=== PATIENT | female | born 2000 | race Hispanic/Latino ===

== ENCOUNTER 2025-02-07 14:11 | Observation (INO) | payer BC ==
[~2025-02-07] VITALS: Ht 154.9 cm; Wt 57.5 kg
--- NOTE | 2025-02-07 14:29 | ERN ---
ED Note History of Present Illness Stated Complaint: REFERRAL FROM [facility] Chief Complaint: Nausea,Vomiting,Diarrhea Time Seen by MD: 14:12 Dictation: PATIENT IS A 24-YEAR-OLD FEMALE COMING IN TODAY FROM [facility] AFTER HAVING A CT WITH AND WITHOUT CONTRAST THIS MORNING. SHE STATES THE CT DEMONSTRATES SHE HAS EARLY APPENDICITIS. SHE IS HAVING MILD LOWER ABDOMINAL PAIN. NO REBOUND TENDERNESS STATES SHE HAS BEEN HAVING INTERMITTENT ABDOMINAL PAIN TO HER LOWER QUADRANT ONSET LAST WEEK. NO FEVER NO CHILLS. Allergies: Coded Allergies: No Known Drug Allergies (Unverified Allergy, Unknown, 02/07/25) Past Medical History Past Medical History: GERD Additional Past Medical Hx: GASTRITIS Surgical History: None History: Not Applicable LMP: Jan 04, 2025 RN Note Reviewed/Agreed w/PFSH: Yes Review of System Dictation CONSTITUTIONAL: NEGATIVE EXCEPT FOR HPI HEAD/FACE: NEGATIVE EXCEPT FOR HPI EENT: NEGATIVE EXCEPT FOR HPI RESPIRATORY: NEGATIVE EXCEPT FOR HPI GASTROINTESTINAL/ABDOMINAL: NEGATIVE EXCEPT FOR HPI LOWER ABDOMINAL PAIN GENITOURINARY: NEGATIVE EXCEPT FOR HPI MUSCULOSKELETAL: NEGATIVE EXCEPT FOR HPI INTEGUMENTARY: NEGATIVE EXCEPT FOR HPI NEUROLOGICAL/PSYCH: NEGATIVE EXCEPT FOR HPI HEMATOLOGIC/LYMPHATIC: NEGATIVE EXCEPT FOR HPI ALL SYSTEMS NEGATIVE, EXCEPT NOTED ABOVE. 13 POINT REVIEW OF SYSTEMS ASSESSED AND ALL NEGATIVE EXCEPT FOR ABOVE. Initial Vital Sign VS Vital Signs Date Time Temp Pulse Resp B/P (MAP) Pulse Ox O2 Delivery O2 Flow Rate FiO2 02/07/25 14:23 99.0 89 16 129/71 98 Room Air 0 Physical Exam Dictation VITAL SIGNS REVIEWED GENERAL APPEARANCE: ALERT, ORIENTED X 3, NO ACUTE DISTRESS, WELL DEVELOPED, NOURISHED. HEAD AND FACE: NON-TRAUMATIC. EYES: PERRL, PINK CONJUNCTIVAS, EYELID NO TRAUMA, ANTERIOR CHAMBER WITH ARCUS SENILIS. EARS: PINNAS INTACT AND NO SIGNS OF TRAUMA OR ERYTHEMA EAR CANALS CLEAR AND NO DISCHARGE TM NO ERYTHEMA NOSE: NO DISCHARGE, NO BLEEDING. OROPHARYNX: MOUTH NORMAL, TONGUE PINK, PHARYNX CLEAR,NO ERYTHEMA, TONSILS NO EXUDATES, NO ABSCESSES NOTED, MUCOUS MEMBRANE MOIST NECK: SUPPLE, NON-TENDER, NO THYROMEGALY, NO MASSES, NO JVD, NO BRUITS BREAST:DEFERRED CHEST:NO TENDERNESS, NO CREPITUS, NO PARADOXICAL MOVEMENT, NO RETRACTIONS LUNGS:CLEAR, WELL-VENTILATED, SYMMETRIC, NO RALES, NO WHEEZING, NO RHONCHI, NO STRIDOR, GOOD BREATH SOUNDS BILATERALLY HEART: REGULAR RATE, REGULAR RHYTHM, NO MURMUR, NO GALLOPS VASCULAR: NO PERIPHERAL EDEMA, ABDOMEN: SOFT, POSITIVE BOWEL SOUNDS, NONDISTENDED, NO GUARDING, MILD PERIUMBILICAL AND RIGHT LOWER QUADRANT TENDERNESS, NO REBOUND, NO MASSES NO HEPATOMEGALY, NO SPLENOMEGALY, NO HERNANDEZ'S SIGN, NO HERNIAS. RECTAL: DEFERRED GENITAL: DEFERRED NEUROLOGICAL: NORMAL SPEECH, MOTOR FUNCTION INTACT, SENSORY FUNCTION INTACT MUSCULOSKELETAL: NECK NONTENDER, FULL RANGE OF MOTION, BACK NONTENDER, FULL RANGE OF MOTION, EXTREMITIES: NONTENDER, FULL RANGE OF MOTION SKIN: COLOR PINK, DRY, NO TURGOR, NO RASH, NO LACERATIONS, NO ABRASIONS, NO CONTUSIONS. LYMPHATIC: DEFERRED Results (Laboratory/Radiology) Laboratory/Radiology Laboratory Tests Test 02/07/25 14:50 02/07/25 14:52 Urine Color COLORLESS (YELLOW) Urine Appearance CLEAR (CLEAR) Urine pH 7.0 (5.0-8.0) Urine Specific [place] 1.005 (1.001-1.031) Urine Protein NEGATIVE mg/dL (NEGATIVE) Urine Glucose (UA) NEGATIVE mg/dL (NEGATIVE) Urine Ketones NEGATIVE mg/dL (NEGATIVE) Urine Occult Blood NEGATIVE (NEGATIVE) Urine Nitrate NEGATIVE (NEGATIVE) Urine Bilirubin NEGATIVE mg/dL (NEGATIVE) Urine Urobilinogen 0.2 mg/dL (0.2-1.0) Urine Leukocyte Esterase NEGATIVE Dre/uL Urine HCG, Qualitative NEGATIVE (NEGATIVE) White Blood Count 8.5 K/uL (4.8-10.8) Red Blood Count 4.18 MIL/uL (4.00-5.50) Hemoglobin 11.9 g/dL (12.0-16.0) L Hematocrit 36.4 % (36-48) Mean Corpuscular Volume 87.1 fL (79-99) Mean Corpuscular Hemoglobin 28.5 pg (27.0-33.0) Mean Corpuscular Hemoglobin Concent 32.7 g/dL (32.0-36.0) Red Cell Distribution Width 12.9 % (11.0-15.5) Platelet Count 246 K/uL (130-400) Mean Platelet Volume 9.7 fL (7.5-10.5) Immature Granulocyte % (Auto) 0.2 % (0-1) Neutrophils (%) (Auto) 42.7 % (40.0-77.0) Lymphocytes (%) (Auto) 49.9 % (21.0-51.0) Monocytes (%) (Auto) 6.0 % (3.0-13.0) Eosinophils (%) (Auto) 0.7 % (0.0-8.0) Basophils (%) (Auto) 0.5 % (0.0-5.0) Neutrophils # (Auto) 3.6 K/uL (1.8-7.7) Lymphocytes # (Auto) 4.3 K/uL (1.0-4.8) Monocytes # (Auto) 0.5 K/uL (0.1-1.0) Eosinophils # (Auto) 0.06 K/uL (0.00-0.70) Basophils # (Auto) 0.04 K/uL (0.00-0.20) Absolute Immature Granulocyte (auto 0.02 K/uL (0-1) Segmented Neutrophils % 47 % (40-70) Band Neutrophils % 3 % (0-2) H Lymphocytes % (Manual) 43 % (22-44) Monocytes % (Manual) 5 % (2-9) Basophils % (Manual) 1 % (0-2) Nucleated Red Blood Cells 0.0 % (0.0-0.19) Differential Comment MANUAL DIFFERENTIAL Reactive Lymphocytes 1 % (0-0) H White Cell Morphology Comment CONSISTENT W/DIFF Platelet Morphology Comment ADEQUATE Red Blood Cell Morphology See comments Sodium Level 140 mmol/L (136-145) Potassium Level 3.9 mmol/L (3.5-5.1) Chloride Level 105 mmol/L (101-111) Carbon Dioxide Level 29 mmol/L (21-32) Blood Urea Nitrogen 10 mg/dL (7-18) Creatinine 0.8 mg/dL (0.5-1.0) Glomerular Filtration Rate Calc 105 mL/min (>90) Random Glucose 86 mg/dL (70-105) Total Calcium 8.9 mg/dL (8.5-10.1) Lipase 27 U/L (16-77) Labs Reviewed?: Yes ED Course ED Course Orders Procedure Category Date Status Time Cbc With Differential LAB 02/07/25 Complete ,Urine Test LAB 02/07/25 Complete Urinalysis Profile LAB 02/07/25 Complete 14:29 0.9%Nacl 1000ml (Ns PHA 02/07/25 Complete 1000ml) 14:30 Ketorolac PHA 02/07/25 Complete Tromethamine 30mg/Ml 14:30 Lipase LAB 02/07/25 Complete 14:29 Basic Metabolic Panel LAB 02/07/25 Complete 14:29 Manual Differential LAB 02/07/25 Complete 14:52 Zosyn 3.375gm+Ns 50ml PHA 02/07/25 Logged (Zosyn 3.375gm+Ns 16:00 General Surgery CONPHYSVC 02/07/25 Transmitted Consult 15:48 Current Medications Medications (Trade) Dose Ordered Sig/Amara Route PRN Reason Start Time Stop Time Status Last Admin Dose Admin Ketorolac Tromethamine (toRADol) 30 mg ONCE ONCE IVP 02/07/25 14:30 02/07/25 14:32 DC 02/07/25 15:23 Piperacillin Sod/ Tazobactam Sod (Zosyn 3.375gm+NS 50ml) 3.375 gm ONCE ONCE IVPB 02/07/25 16:00 02/07/25 16:01 UNV Sodium Chloride 1,000 ml @ 0 mls/hr ONCE ONCE IV 02/07/25 14:30 02/07/25 14:31 DC 02/07/25 15:24 Vital Signs Date Time Temp Pulse Resp B/P (MAP) Pulse Ox O2 Delivery O2 Flow Rate FiO2 02/07/25 14:23 99.0 89 16 129/71 98 Room Air 0 1550/SPOKE WITH /GENERAL SURGERY REGARDING APPENDICITIS. SHE AGREED TO ADMIT PATIENT TO THE HOSPITAL STATES SHE WOULD PERFORM SURGERY IN THE A.M. TOMORROW. CONSULT WAS PLACED. SPOKE WITH PATIENT AND HER AT BEDSIDE AND THEY AGREED TO THE ADMISSION. ADDITIONALLY SHE IS AWARE I WE WILL START IV ANTIBIOTICS AND PAIN WE WILL BE MANAGED.1600/ 1600/SPOKE WITH DR. TERAN, REVIEWED CT LABS AND INTERVENTIONS FOR PAIN AND MY DISCUSSION WITH GENERAL SURGEON SHE HE AGREED TO ADMIT Medical Decision Making MDM MDM: DIFFERENTIAL DIAGNOSIS: APPENDICITIS/DIVERTICULITIS/UTI/ELECTROLYTE IMBALANCE/DEHYDRATION RATIONALE: TESTS CONSIDERED AND ORDERED SECONDARY TO SHARED DECISION MAKING INCLUDE: LABS, AND RADIOLOGY, CP FORM YESTERDAY PREVIOUS OUTSIDE RECORDS REVIEWED: OLD ER VISITS. RISK OF COMPLICATION AND/OR MORBIDITY OR MORTALITY OF PATIENT MANAGEMENT: NONE MEDICATIONS-PER MEDICATION RECONCILIATION NEED FOR HOSPITALIZATION: PATIENT DOES MEET CRITERIA FOR HOSPITALIZATION. ACUTE APPENDICITIS NEED FOR EMERGENCY MAJOR/MINOR SURGERY: APPENDECTOMY THERE ARE NO SOCIAL CONCERNS WITH THIS PATIENT. PRESCRIPTION DRUG MANAGEMENT PRESCRIPTIONS WILL INCLUDE SYMPTOMATIC CARE PATIENT'S PRIOR EXTERNAL MEDICAL RECORDS FROM OTHER ER VISITS WERE REVIEWED BY ME INDICATED. PRIOR TESTING AND RESULTS FROM PREVIOUS VISITS WERE REVIEWED. PRIOR TESTS WERE TAKEN INTO ACCOUNT WITH MEDICAL DECISION MAKING AND RESOURCE UTILIZATION, INDEPENDENT HISTORIAN/HISTORIANS WERE USED TO OBTAIN COMPLETE MEDICAL HISTORY. I INDEPENDENTLY INTERPRETED THE TEST THAT WERE PERFORMED, RESULTS WERE REVIEWED BY ME AND CONSIDERED FINDINGS ON RADIOLOGY IF ORDERED. MEDICAL MANAGEMENT AND EXAMINATION INTERPRETATION DISCUSSIONS WERE HAD BY ME WITH OTHER QUALIFIED HEALTHCARE PROFESSIONALS INDICATED FOR THE PATIENT'S CARE. DX & DISP Disposition: Inpatient Decision to Admit Time: 15:50 Departure Impression: Primary Impression: Acute appendicitis Condition: Stable Referrals: SELF,REFERRAL (PCP) Time of Disposition: 15:50 I have reviewed the case, and I agree with, Diagnosis and Plan ALEJANDRO ANDREW NP Feb 07, 2025 14:29
[2025-02-07 15:15] LABS: IMMATURE GRANULOCYTE ABSOLUTE 0.02 K/uL (0-1); NUCLEATED RED BLOOD CELLS 0.0 % (0.0-0.19); PLATELET COUNT (AUTO) 246 K/uL (130-400); RED BLOOD CELL COUNT(AUTO) 4.18 MIL/uL (4.00-5.50); RED CELL DISTRIBUTION WIDTH 12.9 % (11.0-15.5); WHITE BLOOD COUNT (AUTO) 8.5 K/uL (4.8-10.8)
[2025-02-07 15:17] LABS: APPEARANCE,URINE CLEAR (CLEAR); GLUCOSE, URINE (UA) NEGATIVE (NEGATIVE); LEUKOCYTE ESTERASE ,URINE NEGATIVE Leu/uL (NEGATIVE); NITRATE,URINE NEGATIVE (NEGATIVE); OCCULT BLOOD,URINE NEGATIVE (NEGATIVE)
[2025-02-07 15:21] LABS: CREATININE 0.8 mg/dL (0.5-1.0); GLOMERULAR FILTR. RATE CALC 105.0 mL/min (>90); GLUCOSE,RANDOM 86.0 mg/dL (70-105); SODIUM SERUM 140.0 mmol/L (136-145); UREA NITROGEN, BLOOD 10.0 mg/dL (7-18)
[2025-02-07 15:23] LABS: HCG,QUALITATIVE URINE NEGATIVE (NEGATIVE)
[2025-02-07] MEDS: 0.9%NACL 1000ML 1,000 ML IV ONE (15:24)
[2025-02-07 15:25] LABS: ADD UA MICROSCOPIC NO
[2025-02-07 15:51] LABS: BAND NEUTROPHILS % (MANUAL) 3 % (0-2); BASOPHILS % (MANUAL) 1 % (0-2); LYMPHOCYTES % (MANUAL) 43 % (22-44); MAN.DIFF COMMENT-IMPRESSION MANUAL DIFFERENTIAL; MONOCYTES % (MANUAL) 5 % (2-9); PLATELET MORPHOLOGY COMMENT ADEQUATE; REACTIVE LYMPHOCYTES 1 % (0-0); SEGMENTED NEUTROPHILS % 47 % (40-70); WBC MORPHOLOGY CONSISTENT W/DIFF
[2025-02-07 16:00] VITALS: BP 107/62; PULSE 78; RESP 17; TEMP 98.8
[2025-02-07] MEDS: ZOSYN 3.375GM +NS 50ML IVPB ONE (16:00)
--- NOTE | 2025-02-07 16:17 | HP ---
[facility] HISTORY AND PHYSICAL Date of Service: Feb 07, 2025 Time of Service: 16:17 HISTORY OF PRESENT ILLNESS: This is a 24-year-old female with past medical history of gastritis who presented to the hospital secondary to abdominal pain. Patient states she has been having abdominal failed for the past one week. Her pain is primarily located in the epigastric/periumbilical area which radiates to her upper chest. She denies any fever, chills nausea, vomiting. Denied any diarrhea, constipation at home. She was seen by [facility] and had a CT abdomen pelvis done with and without contrast. Her CT scan was concerning for slight thickening of the appendix concerning for possible early appendicitis. She denied any changes in her appetite, falls, syncopal episode. Denied any chest pain with exertion. She is active at home and is able to perform her daily activities. Denied any dysuria, melena, hematochezia, hematemesis. Patient also has a history of EGD and colonoscopy done around six months ago. Her EGD showed gastritis. She is currently taking omeprazole at home. Labs in the ED were notable for white count of 8.5, hemoglobin was 11.9, platelet count was 246 K, sodium is 140, potassium was 3.9, chloride was 105, creatinine is 0.[address] abdomen pelvis done on 02/07/2025 which showed thickening of the appendix concerning for possible early appendicitis. ED provider spoke to General surgery who recommended patient to be admitted to the hospital for further evaluation. REVIEW OF SYSTEMS CONSTITUTIONAL: Denies fevers, chills, or night sweats. No unintentional weight loss reported. NEUROLOGICAL: Denies headache, amaurosis fugax, motor weakness, sensory deficit, vertigo/spinning sensation, gait abnormalities, or tremors. ENT: No hearing loss, otalgia, otorrhea, rhinitis, rhinorrhea, hoarseness, or sore throat. CARDIOVASCULAR: Denies any exertional angina, dyspnea on exertion, orthopnea, paroxysmal nocturnal dyspnea, palpitations, life-threatening arrhythmias, claudication. PULMONARY: Denies any shortness of breath, cough, phlegm/sputum, hemoptysis, pleuritic chest pain. SLEEP: Denies morning headaches, daytime somnolence or napping. Denies difficulty falling asleep, staying asleep, waking from sleep. Denies knowledge of snoring. GASTROINTESTINAL: Positive for abdominal pain. Denied any nausea, vomiting, constipation, diarrhea GENITOURINARY: Denies frequency, urgency, nocturia, hematuria or incontinence (Storage/Irritative symptoms.) Low urinary stream, straining to void, urinary intermittency or hesitancy, splitting of the voiding stream, terminal dribbling. ENDOCRINOLOGIC: Denies polyuria, polydipsia, polyphagia or heat/cold intolerances. HEMATOLOGIC: Denies thrombophilia/previous clots, or coagulopathy/bleeding disorders. ONCOLOGIC: Denies personal history of malignancy. DERMATOLOGIC: Denies rashes or pruritus. PSYCHIATRIC: Denies any suicidal or homicidal ideation. Denies hallucinations. PAST MEDICAL HISTORY: History of gastritis PAST SURGICAL HISTORY: EGD, colonoscopy PAST SOCIAL HISTORY: Denied any smoking, alcohol, drug use FAMILY HISTORY: Denied any pertinent family history Coded Allergies: No Known Drug Allergies (Unverified Allergy, Unknown, 02/07/25) PHYSICAL EXAM GENERAL APPEARANCE: The patient is awake, alert, and oriented, in no acute cardiopulmonary distress. NEUROLOGICAL: Cranial nerves II-XII grossly intact. Motor is 5/5 in bilateral upper and lower extremities proximal to distal. No sensory deficits. HEENT: Face is symmetric. Pupils are equal and reactive. Extraocular movements are intact. NECK: Supple. No JVD. No thyromegaly. No submental, submandibular, pre- /postauricular, occipital or supraclavicular lymphadenopathy. CHEST: Normal chest expansion. No Telemetry. LUNGS: Absence of any rales, rhonchi or any wheezing. CARDIOVASCULAR: Regular. S1 and S2 normal. No appreciable rubs, murmurs or gallops. ABDOMEN: Soft, nontender, and nondistended. There is no rebound, voluntary guarding, or rigidity. : Deferred. No Dennis. EXTREMITIES: Non-edematous and not cyanotic. No clubbing. Good capillary refill. SKIN: No skin breakdown. Vital Sign (Last 24 Hours) 02/07/25 14:23 Temp 99.0 Pulse 89 Resp 16 B/P (MAP) 129/71 Pulse Ox 98 O2 Delivery Room Air O2 Flow Rate 0 LABS: Laboratory: Test 02/07/25 14:52 02/07/25 14:50 Range/Units White Blood Count 8.5 4.8-10.8 K/uL Red Blood Count 4.18 4.00-5.50 MIL/uL Hemoglobin 11.9 L 12.0-16.0 g/dL Hematocrit 36.4 36-48 % Mean Corpuscular Volume 87.1 79-99 fL Mean Corpuscular Hemoglobin 28.5 27.0-33.0 pg Mean Corpuscular Hemoglobin Concent 32.7 32.0-36.0 g/dL Red Cell Distribution Width 12.9 11.0-15.5 % Platelet Count 246 130-400 K/uL Mean Platelet Volume 9.7 7.5-10.5 fL Immature Granulocyte % (Auto) 0.2 0-1 % Neutrophils (%) (Auto) 42.7 40.0-77.0 % Lymphocytes (%) (Auto) 49.9 21.0-51.0 % Monocytes (%) (Auto) 6.0 3.0-13.0 % Eosinophils (%) (Auto) 0.7 0.0-8.0 % Basophils (%) (Auto) 0.5 0.0-5.0 % Neutrophils # (Auto) 3.6 1.8-7.7 K/uL Lymphocytes # (Auto) 4.3 1.0-4.8 K/uL Monocytes # (Auto) 0.5 0.1-1.0 K/uL Eosinophils # (Auto) 0.06 0.00-0.70 K/uL Basophils # (Auto) 0.04 0.00-0.20 K/uL Absolute Immature Granulocyte (auto 0.02 0-1 K/uL Segmented Neutrophils % 47 40-70 % Band Neutrophils % 3 H 0-2 % Lymphocytes % (Manual) 43 22-44 % Monocytes % (Manual) 5 2-9 % Basophils % (Manual) 1 0-2 % Nucleated Red Blood Cells 0.0 0.0-0.19 % Differential Comment MANUAL DIFFERENTIAL Reactive Lymphocytes 1 H 0-0 % White Cell Morphology Comment CONSISTENT W/DIFF Platelet Morphology Comment ADEQUATE Red Blood Cell Morphology See comments Sodium Level 140 136-145 mmol/L Potassium Level 3.9 3.5-5.1 mmol/L Chloride Level 105 101-111 mmol/L Carbon Dioxide Level 29 21-32 mmol/L Blood Urea Nitrogen 10 7-18 mg/dL Creatinine 0.8 0.5-1.0 mg/dL Glomerular Filtration Rate Calc 105 >90 mL/min Random Glucose 86 70-105 mg/dL Total Calcium 8.9 8.5-10.1 mg/dL Lipase 27 16-77 U/L Urine Color COLORLESS YELLOW Urine Appearance CLEAR CLEAR Urine pH 7.0 5.0-8.0 Urine Specific [place] 1.005 1.001-1.031 Urine Protein NEGATIVE NEGATIVE mg/dL Urine Glucose (UA) NEGATIVE NEGATIVE mg/dL Urine Ketones NEGATIVE NEGATIVE mg/dL Urine Occult Blood NEGATIVE NEGATIVE Urine Nitrate NEGATIVE NEGATIVE Urine Bilirubin NEGATIVE NEGATIVE mg/dL Urine Urobilinogen 0.2 0.2-1.0 mg/dL Urine Leukocyte Esterase NEGATIVE NEGATIVE Dre/uL Urine HCG, Qualitative NEGATIVE NEGATIVE DIAGNOSTICS / RADIOLOGY: CT scan was reviewed ASSESSMENT: Suspected acute appendicitis POA History of gastritis PLAN: - patient to be admitted to medical-surgical unit with telemetry -in reference to acute appendicitis. The patient will be kept NPO. Start patient on NS for gentle hydration. Continue with IV Zosyn. Consultation with surgery was recommended. Follow surgical recommendations. -further orders per hospitalization course. Advanced Care Planning Which of the following were discussed: Hospice care: Yes __ No _x_ Therapeutic options: Yes __ No __ Advance directives: Yes __ No __ Other discussions: Pt is full code Discussed with who?: patient (Patient, family or surrogates) Voluntary nature of this service was explained to the patient? Yes _x_ No __ Amount of time spent: 25 minutes JAVIER Valentino MD, MD Feb 07, 2025 16:17
[2025-02-07] MEDS: 0.9%NACL 1000ML 1,000 ML IV SCH (16:30)
[2025-02-07 17:22] LABS: INR 1.03 (0.85-1.15)
[2025-02-07 21:56] VITALS: BP 122/71; PULSE 68; RESP 16; TEMP 98.3
--- NOTE | 2025-02-07 23:18 | NUR ---
PT NOTIFIED TO HAVE SOMEONE BRING HOME MEDICATIONS AT EARLIEST CONVENIENCE FOR MEDICATION RECONCILIATION.
[2025-02-08] VITALS (29 sets, daily range): BP systolic 103–130; BP diastolic 50–77; PULSE 62–90; RESP 14–20; TEMP 97.1–98.9; O2SAT 95–100
[2025-02-08] MEDS ORDERED: 0.9%NACL 50ML IV SCH (02:00)
[2025-02-08] MEDS: ZOSYN 3.375GM +NS 50ML IVPB SCH (02:06)
[2025-02-08] MEDS ORDERED: ONDA-104 PO (04:09)
[2025-02-08] MEDS ORDERED: OMEP20CA12 PO (04:09)
[2025-02-08] MEDS ORDERED: FAMO40TA7 PO (04:33)
[2025-02-08] MEDS ORDERED: PLEC3TAB2 PO (04:33)
[2025-02-08 07:07] LABS: IMMATURE GRANULOCYTE ABSOLUTE 0.02 K/uL (0-1); NUCLEATED RED BLOOD CELLS 0.0 % (0.0-0.19); PLATELET COUNT (AUTO) 206 K/uL (130-400); RED BLOOD CELL COUNT(AUTO) 3.89 MIL/uL (4.00-5.50); RED CELL DISTRIBUTION WIDTH 12.8 % (11.0-15.5); WHITE BLOOD COUNT (AUTO) 6.5 K/uL (4.8-10.8)
[2025-02-08 07:17] LABS: CREATININE 0.8 mg/dL (0.5-1.0); GLOMERULAR FILTR. RATE CALC 105.0 mL/min (>90); GLUCOSE,RANDOM 84.0 mg/dL (70-105); SODIUM SERUM 134.0 mmol/L (136-145); UREA NITROGEN, BLOOD 11.0 mg/dL (7-18)
--- NOTE | 2025-02-08 07:36 | EKG ---
[facility] Test Date: 2025-02-07 Test Time: 17:36:50 Pat Name: TREY TANNER Department: [facility] Room: 407 1 Gender: F Wireless Watcher: [id number] : 2000 Requested By: JAVIER TERAN Order Number: [id number] Reading MD: Bonilla Menard Measurements Intervals Mccleary Rate: 69 P: 59 HI: 154 QRS: 76 QRSD: 95 T: 39 QT: 384 QTc: 412 Interpretive Statements Sinus rhythm ST elev, probable normal early repol pattern No previous ECG available for comparison Electronically Signed On 02-10-2025 23:56:57 CDT by Bonilla Menard Please click the below link to view image of tracing.
--- NOTE | 2025-02-08 10:57 | CONS ---
GENERAL SURGERY CONSULTATION NOTE DATE OF CONSULTATION: Feb 08, 2025 TIME OF CONSULTATION: 10:54 CONSULTING SERVICE: Tea Leblanc MD REQUESTING PHYSICAIN: [ ] REASON FOR CONSULTATION: Acute appendicitis HISTORY OF PRESENT ILLNESS: 24-year-old female previously healthy started with the acute onset of abdominal pain about a week ago it was on and off. With nausea no fevers. Within the last few days it got worse and we decided to come to the primary care who ordered a CT scan. and was found to have acute appendicitis on CT scan. In this finding was sent to the ER to be admitted. PAST MEDICAL HISTORY: GERD PAST SURGICAL HISTORY: None FAMILY HISTORY: [ ] SOCIAL HISTORY: None Current Medications Medications (Trade) Dose Ordered Sig/Amara Route Start Time Stop Time Status Last Admin Dose Admin Piperacillin Sod/ Tazobactam Sod (Zosyn 3.375gm+NS 50ml) 3.375 gm Q8H IVPB 02/08/25 02:00 02/18/25 01:59 02/08/25 09:48 3.375 GM Sodium Chloride 1,000 ml @ 100 mls/hr Q10H IV 02/07/25 16:30 03/09/25 16:29 02/08/25 02:06 100 MLS/HR Sodium Chloride (NS 50ml) 50 ml AD IV 02/08/25 02:00 03/10/25 01:59 Allergies: Coded Allergies: No Known Drug Allergies (Unverified Allergy, Unknown, 02/07/25) REVIEW OF SYSTEMS: DEAN OF FACULTY: [Denies headaches or blurring of vision.] RESP: No shortness of breath CVS: [No palpitaions.] GI: As per HPI WANDY: [No dysuria or hematuria.] Musculoskeletal: [No swelling or joint pain.] BACK: [No pain or swelling.] All other systems are reviewed and essentially negative pertinent positives in HPI. PHYSICAL EXAMINATION: GENERAL: No distress HEAD: Normocephalic EYES: Normal conjunctiva NECK: Trachea midline LUNGS: [Clear breath sounds bilaterally. No wheezes, rales, or rhonchi.] HEART: [Regular rate and rhythm ABD: [Bowel sounds present,soft, right lower quadrant tenderness EXT: No deformities SKIN: [ No rashes or lesions.] NEURO: [ Awake Alert and oriented x3. Vital Signs (last 8hr) Date Time Temp Pulse Resp B/P (MAP) Pulse Ox O2 Delivery O2 Flow Rate FiO2 02/08/25 08:23 95 Room Air* 0 02/08/25 07:41 98.4 77 16 116/63 95 Room Air 02/08/25 04:36 100 Room Air* 0 02/08/25 04:25 98.2 62 20 130/69 98 Room Air 02/08/25 04:11 98.8 69 17 124/56 99 Room Air* 0 02/08/25 03:18 98.2 78 15 118/72 100 Room Air 0.0 LABORATORY: [ ] Hematology Labs: Test 02/08/25 06:49 02/07/25 14:52 Range/Units White Blood Count 6.5 4.8-10.8 K/uL Red Blood Count 3.89 L 4.00-5.50 MIL/uL Hemoglobin 11.2 L 12.0-16.0 g/dL Hematocrit 33.9 L 36-48 % Mean Corpuscular Volume 87.1 79-99 fL Mean Corpuscular Hemoglobin 28.8 27.0-33.0 pg Mean Corpuscular Hemoglobin Concent 33.0 32.0-36.0 g/dL Red Cell Distribution Width 12.8 11.0-15.5 % Platelet Count 206 130-400 K/uL Mean Platelet Volume 9.3 7.5-10.5 fL Immature Granulocyte % (Auto) 0.3 0-1 % Neutrophils (%) (Auto) 41.6 40.0-77.0 % Lymphocytes (%) (Auto) 49.5 21.0-51.0 % Monocytes (%) (Auto) 6.9 3.0-13.0 % Eosinophils (%) (Auto) 1.1 0.0-8.0 % Basophils (%) (Auto) 0.6 0.0-5.0 % Neutrophils # (Auto) 2.7 1.8-7.7 K/uL Lymphocytes # (Auto) 3.2 1.0-4.8 K/uL Monocytes # (Auto) 0.5 0.1-1.0 K/uL Eosinophils # (Auto) 0.07 0.00-0.70 K/uL Basophils # (Auto) 0.04 0.00-0.20 K/uL Absolute Immature Granulocyte (auto 0.02 0-1 K/uL Nucleated Red Blood Cells 0.0 0.0-0.19 % Segmented Neutrophils % 47 40-70 % Band Neutrophils % 3 H 0-2 % Lymphocytes % (Manual) 43 22-44 % Monocytes % (Manual) 5 2-9 % Basophils % (Manual) 1 0-2 % Differential Comment MANUAL DIFFERENTIAL Reactive Lymphocytes 1 H 0-0 % White Cell Morphology Comment CONSISTENT W/DIFF Platelet Morphology Comment ADEQUATE Red Blood Cell Morphology See comments Chemistry Labs: Test 02/08/25 06:49 02/07/25 19:46 02/07/25 14:52 Range/Units Sodium Level 134 L 136-145 mmol/L Potassium Level 3.5 3.5-5.1 mmol/L Chloride Level 102 101-111 mmol/L Carbon Dioxide Level 27 21-32 mmol/L Blood Urea Nitrogen 11 7-18 mg/dL Creatinine 0.8 0.5-1.0 mg/dL Glomerular Filtration Rate Calc 105 >90 mL/min Random Glucose 84 70-105 mg/dL Total Calcium 8.5 8.5-10.1 mg/dL Troponin I High Sensitivity 5 4-50 ng/L Lipase 27 16-77 U/L Coagulation Labs: Test 02/07/25 14:52 Range/Units Prothrombin Time 10.9 9.6-11.6 SEC Prothromb Time International Ratio 1.03 0.85-1.15 Activated Partial Thromboplast Time 27.9 26.3-35.5 SEC DIAGNOSTICS / RADIOLOGY: [Copy/Paste Echos/Imaging Report here] ASSESSMENT: Acute appendicitis PLAN: Schedule for OR we discussed all the risks of laparoscopic appendectomy possible open and she agrees to proceed. KIKI DELEON MD Feb 08, 2025 10:57
[2025-02-08] MEDS: SUGAMMADEX SODIUM 200 MG/2 ML VIAL IV ONE (11:52)
--- NOTE | 2025-02-08 13:08 | OP ---
Operative Note: DATE OF PROCEDURE: 02/08/25 PROCEDURE:Laparoscopic appendectomy. ANESTHESIA: General endotracheal. PREOPERATIVE DIAGNOSIS: Appendicitis. POSTOPERATIVE DIAGNOSIS: Acute appendicitis without perforation. DEVICES LEFT IN PLACE: None. FLUID AND BLOOD PRODUCTS: Per anesthesia report. BLOOD LOSS: Minimal. SPECIMENS REMOVED: Appendix. COMPLICATIONS: None immediate. SURGEON: Kiki Zavala MD. DESCRIPTION OF PROCEDURE: The patient was brought to the operating room and placed on the operating table in supine position where general endotracheal anesthesia was achieved. We then proceeded to prep and drape the abdomen in sterile fashion, created a longitudinal incision at the umbilicus, and dissected down through the skin, subcutaneous tissue, and fascia to expose the fascia and incise the fascia at the midline using a #15 blade and entered the abdominal cavity. We introduced a trocar, obtained pneumoperitoneum, and then under direct visualization, we proceeded to place two 5-mm trocars, one in the suprapubic position and the other in the left lower quadrant. We then proceeded to evaluate the pelvis. We evaluated the appendix and it has changes of acute appendicitis. We therefore proceeded to release the appendix from all its adhesions using blunt and sharp dissection with a LigaSure and then proceeded to create a window at the base of the appendix with a [place] dissector and divided the mesoappendix with the LigaSure device. Once the base of the appendix was free, we then proceeded to divide the appendix with the [place] vascular load stapler. Placed the appendix into the Endo Catch bag. We inspected the pelvis again and we did not find any signs of an abscess or any other signs of infection. Then, under direct visualization, we proceeded to remove our trocars and there was no bleeding from the abdominal wall. We removed the appendix from the abdomen using the EndoCatch bag and relieved the pneumoperitoneum. We closed the fascia at the umbilicus using a 0-Vicryl stitch in the [id number] fashion and then the skin was closed using a 4-0 Monocryl in running subcuticular fashion and Dermabond. The patient tolerated the procedure well. I was present as well during the entire procedure. All counts were correct x 2 at the end of the procedure. KIKI ZAVALA MD Feb 08, 2025 13:08
--- NOTE | 2025-02-08 14:00 | PN ---
[facility] PROGRESS NOTE Date of Service: Feb 08, 2025 Time of Service: 13:58 SUBJECTIVE: 24-year-old female admitted with chief complaint of abdominal pain, findings suggestive of acute appendicitis on CT abdomen and pelvis. Surgical consultation requested for laparoscopic appendectomy. Patient admitted to the medical floor, hemodynamically stable, afebrile, s aturating normal on room air, hemoglobin 8.2, hematocrit 33.9, potassium 3.5, UA unremarkable, test negative. CT abdomen pelvis reported as follows: IMPRESSION: 1. Slight thickening of the appendix, possible early appendicitis, correlate clinically. No perforation or abscess. New compared to prior CT Abdomen and Pelvis 07/04/2011. REVIEW OF SYSTEMS CONSTITUTIONAL: Denies fevers, chills, or night sweats. No unintentional weight loss reported. NEUROLOGICAL: Denies headache, amaurosis fugax, motor weakness, sensory deficit, vertigo/spinning sensation, gait abnormalities, or tremors. ENT: No hearing loss, otalgia, otorrhea, rhinitis, rhinorrhea, hoarseness, or sore throat. CARDIOVASCULAR: Denies any exertional angina, dyspnea on exertion, orthopnea, paroxysmal nocturnal dyspnea, palpitations, life-threatening arrhythmias, claudication. PULMONARY: Denies any shortness of breath, cough, phlegm/sputum, hemoptysis, pleuritic chest pain. SLEEP: Denies morning headaches, daytime somnolence or napping. Denies difficulty falling asleep, staying asleep, waking from sleep. Denies knowledge of snoring. GASTROINTESTINAL: Positive for abdominal pain. Denied any nausea, vomiting, constipation, diarrhea GENITOURINARY: Denies frequency, urgency, nocturia, hematuria or incontinence (Storage/Irritative symptoms.) Low urinary stream, straining to void, urinary intermittency or hesitancy, splitting of the voiding stream, terminal dribbling. ENDOCRINOLOGIC: Denies polyuria, polydipsia, polyphagia or heat/cold intolerances. HEMATOLOGIC: Denies thrombophilia/previous clots, or coagulopathy/bleeding disorders. ONCOLOGIC: Denies personal history of malignancy. DERMATOLOGIC: Denies rashes or pruritus. PSYCHIATRIC: Denies any suicidal or homicidal ideation. Denies hallucinations. PHYSICAL EXAM GENERAL APPEARANCE: The patient is awake, alert, and oriented, in no acute cardiopulmonary distress. NEUROLOGICAL: Cranial nerves II-XII grossly intact. Motor is 5/5 in bilateral upper and lower extremities proximal to distal. No sensory deficits. HEENT: Face is symmetric. Pupils are equal and reactive. Extraocular movements are intact. NECK: Supple. No JVD. No thyromegaly. No submental, submandibular, pre- /postauricular, occipital or supraclavicular lymphadenopathy. CHEST: Normal chest expansion. No Telemetry. LUNGS: Absence of any rales, rhonchi or any wheezing. CARDIOVASCULAR: Regular. S1 and S2 normal. No appreciable rubs, murmurs or gallops. ABDOMEN: Soft, nontender, and nondistended. There is no rebound, voluntary guarding, or rigidity. : Deferred. No Dennis. EXTREMITIES: Non-edematous and not cyanotic. No clubbing. Good capillary refill. SKIN: No skin breakdown. Vital Signs (last 8hr) Date Time Temp Pulse Resp B/P (MAP) Pulse Ox O2 Delivery O2 Flow Rate FiO2 02/08/25 13:40 79 16 112/52 98 Room Air 02/08/25 13:25 76 16 110/50 96 Room Air 02/08/25 13:10 98.2 87 16 103/56 99 Room Air 02/08/25 13:00 71 16 107/52 100 Nasal Cannula 2.0 02/08/25 12:45 70 15 106/58 100 Nasal Cannula 2.0 02/08/25 12:40 82 16 107/55 Nasal Cannula 2.0 02/08/25 12:35 87 20 109/56 98 Nasal Cannula 2.0 02/08/25 12:30 90 19 127/71 100 Nasal Cannula 2.0 02/08/25 12:25 89 20 129/68 97 Nasal Cannula 2.0 02/08/25 12:20 85 17 127/69 97 Nasal Cannula 2.0 02/08/25 12:15 89 19 118/66 98 Nasal Cannula 2.0 02/08/25 12:10 86 17 124/65 97 Nasal Cannula 2.0 02/08/25 12:05 87 19 123/61 99 Nasal Cannula 2.0 02/08/25 12:00 84 20 121/62 98 Nasal Cannula 2.0 02/08/25 11:55 83 14 125/68 100 Nasal Cannula 2.0 02/08/25 11:50 82 17 118/61 100 Nasal Cannula 2.0 02/08/25 11:45 97.2 84 20 125/65 Nonrebreathing Mask 10.0 02/08/25 08:23 95 Room Air* 0 21 02/08/25 07:41 98.4 77 16 116/63 95 Room Air LABS: Laboratory: Test 02/08/25 06:49 02/07/25 19:46 02/07/25 14:52 02/07/25 14:50 Range/Units White Blood Count 6.5 4.8-10.8 K/uL Red Blood Count 3.89 L 4.00-5.50 MIL/uL Hemoglobin 11.2 L 12.0-16.0 g/dL Hematocrit 33.9 L 36-48 % Mean Corpuscular Volume 87.1 79-99 fL Mean Corpuscular Hemoglobin 28.8 27.0-33.0 pg Mean Corpuscular Hemoglobin Concent 33.0 32.0-36.0 g/dL Red Cell Distribution Width 12.8 11.0-15.5 % Platelet Count 206 130-400 K/uL Mean Platelet Volume 9.3 7.5-10.5 fL Immature Granulocyte % (Auto) 0.3 0-1 % Neutrophils (%) (Auto) 41.6 40.0-77.0 % Lymphocytes (%) (Auto) 49.5 21.0-51.0 % Monocytes (%) (Auto) 6.9 3.0-13.0 % Eosinophils (%) (Auto) 1.1 0.0-8.0 % Basophils (%) (Auto) 0.6 0.0-5.0 % Neutrophils # (Auto) 2.7 1.8-7.7 K/uL Lymphocytes # (Auto) 3.2 1.0-4.8 K/uL Monocytes # (Auto) 0.5 0.1-1.0 K/uL Eosinophils # (Auto) 0.07 0.00-0.70 K/uL Basophils # (Auto) 0.04 0.00-0.20 K/uL Absolute Immature Granulocyte (auto 0.02 0-1 K/uL Nucleated Red Blood Cells 0.0 0.0-0.19 % Sodium Level 134 L 136-145 mmol/L Potassium Level 3.5 3.5-5.1 mmol/L Chloride Level 102 101-111 mmol/L Carbon Dioxide Level 27 21-32 mmol/L Blood Urea Nitrogen 11 7-18 mg/dL Creatinine 0.8 0.5-1.0 mg/dL Glomerular Filtration Rate Calc 105 >90 mL/min Random Glucose 84 70-105 mg/dL Total Calcium 8.5 8.5-10.1 mg/dL Troponin I High Sensitivity 5 4-50 ng/L Segmented Neutrophils % 47 40-70 % Band Neutrophils % 3 H 0-2 % Lymphocytes % (Manual) 43 22-44 % Monocytes % (Manual) 5 2-9 % Basophils % (Manual) 1 0-2 % Differential Comment MANUAL DIFFERENTIAL Reactive Lymphocytes 1 H 0-0 % White Cell Morphology Comment CONSISTENT W/DIFF Platelet Morphology Comment ADEQUATE Red Blood Cell Morphology See comments Prothrombin Time 10.9 9.6-11.6 SEC Prothromb Time International Ratio 1.03 0.85-1.15 Activated Partial Thromboplast Time 27.9 26.3-35.5 SEC Lipase 27 16-77 U/L Urine Color COLORLESS YELLOW Urine Appearance CLEAR CLEAR Urine pH 7.0 5.0-8.0 Urine Specific [place] 1.005 1.001-1.031 Urine Protein NEGATIVE NEGATIVE mg/dL Urine Glucose (UA) NEGATIVE NEGATIVE mg/dL Urine Ketones NEGATIVE NEGATIVE mg/dL Urine Occult Blood NEGATIVE NEGATIVE Urine Nitrate NEGATIVE NEGATIVE Urine Bilirubin NEGATIVE NEGATIVE mg/dL Urine Urobilinogen 0.2 0.2-1.0 mg/dL Urine Leukocyte Esterase NEGATIVE NEGATIVE Dre/uL Urine HCG, Qualitative NEGATIVE NEGATIVE Current Medications Medications (Trade) Dose Ordered Sig/Amara Route PRN Reason Start Time Stop Time Status Last Admin Dose Admin Ketorolac Tromethamine (toRADol) 15 mg Q6H PRN IV MODERATE PAIN (4-6) 02/07/25 16:30 02/12/25 16:29 02/08/25 08:48 15 MG Morphine Sulfate (morPHINE 2MG SYG) 2 mg Q6H PRN IVP SEVERE PAIN (7-10) 02/07/25 16:30 02/14/25 16:29 Ondansetron HCl (zoFRAN 4MG INJ) 4 mg Q6H PRN IVP NAUSEA/VOMITING 02/08/25 04:30 03/10/25 04:29 02/08/25 13:39 4 MG Piperacillin Sod/ Tazobactam Sod (Zosyn 3.375gm+NS 50ml) 3.375 gm Q8H IVPB 02/08/25 02:00 02/18/25 01:59 02/08/25 09:48 3.375 GM Sodium Chloride 1,000 ml @ 100 mls/hr Q10H IV 02/07/25 16:30 03/09/25 16:29 02/08/25 02:06 100 MLS/HR Sodium Chloride (NS 50ml) 50 ml AD IV 02/08/25 02:00 03/10/25 01:59 DIAGNOSTICS / RADIOLOGY: [ ] ASSESSMENT: Suspected acute appendicitis POA History of gastritis PLAN: - patient to be admitted to medical-surgical unit with telemetry -in reference to acute appendicitis. The patient will be kept NPO. Continue on NS for gentle hydration. Continue with IV Zosyn. Consultation with surgery was recommended. Appendectomy today. -further orders per hospitalization course. JAZMINE VAUGHN MD Feb 08, 2025 14:00
[2025-02-09 00:26] VITALS: BP 99/56; PULSE 83; RESP 19; TEMP 98.5
[2025-02-09 04:22] VITALS: BP 119/55; PULSE 71; RESP 18; TEMP 98.4
[2025-02-09 04:40] LABS: NUCLEATED RED BLOOD CELLS 0.0 % (0.0-0.19); PLATELET COUNT (AUTO) 195.0 K/uL (130-400); RED BLOOD CELL COUNT(AUTO) 3.6 MIL/uL (4.00-5.50); RED CELL DISTRIBUTION WIDTH 12.7 % (11.0-15.5); WHITE BLOOD COUNT (AUTO) 7.4 K/uL (4.8-10.8)
[2025-02-09 05:03] LABS: ASPARTATE AMINOTRANSFERASE 88.0 U/L (10-37); CREATININE 0.8 mg/dL (0.5-1.0); GLOMERULAR FILTR. RATE CALC 105.0 mL/min (>90); GLUCOSE,RANDOM 79.0 mg/dL (70-105); SODIUM SERUM 139.0 mmol/L (136-145); TOTAL PROTEIN, SERUM 6.0 g/dL (6.0-8.3); UREA NITROGEN, BLOOD 9.0 mg/dL (7-18)
[2025-02-09 07:45] VITALS: BP 122/56; PULSE 84; RESP 16; TEMP 99.1
[2025-02-09 08:00] VITALS: O2SAT 98
[2025-02-09] MEDS ORDERED: FAMO40TA7 PO (08:04)
[2025-02-09 11:19] VITALS: BP 108/62; PULSE 73; RESP 16; TEMP 98.7
--- NOTE | 2025-02-09 11:26 | NUR ---
DCP: INITIAL ASSESSMENT Patient lives with spouse, Giovanny Lundberg. She has no home services. Patient has BPM at home. No other DME reported. Patient is able to complete ADLs independently and drives. 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 PCP is Dr. Christy Meek. Pharmacy is [facility] in [place]. Patient voiced no safety concerns regarding returning home and states she has no difficulty with housing or buying food. DCP is home. Addendum: 02/09/25 at 1128 by GLADYS CAMPOVERDE Amended: Links added.
--- NOTE | 2025-02-09 12:13 | DS ---
Discharge Summary Hospital Course Summary: DATE OF ADMISSION:[02/07/2025] DATE OF DISCHARGE:[02/09/2025] DISPOSITION:[Home] CONDITION:[Medically stable] CONSULTANTS:[Surgeon] FOLLOW UP APPOINTMENTS:[PCP 2 to 3 days. Surgeon within two weeks] PROCEDURES:[Lap appendectomy 02/08/2026 Dr. Zavala] IMAGING: report attached to summary MICROBIOLOGY: report attached to summary ACTIVITY:[Independent] HOME MEDICATIONS: see med [facility] NEW MEDICATIONS:[Script for tramadol 25 mg q.8 hours was given to the patient. EMERGENCY INSTRUCTIONS: The patient was instructed to present to the nearest Emergency departmentr or call 911 once their symptoms will return or worsen Religion Instructor(s): Patient is 24 years old female who came to emergency department with a complaint of abdominal pain for the past week. Patient had CT abdomen/pelvis performed and she will early acute appendicitis. Surgeon was consulted and yesterday 02/08/2026 performed appendectomy. Today patient was able to tolerate GI soft diet as well is passing gases. Patient was cleared by surgeon to be discharged home. Nurse practitioner prescribed tramadol 25 mg p.o. Q 8 hours as needed for the pain severe. Patient was also advised to follow up with PCP in 2 to 3 days. Procedure(s): REVIEW OF SYSTEMS CONSTITUTIONAL: Denies fevers, chills, or night sweats. No unintentional weight loss reported. NEUROLOGICAL: Denies headache, amaurosis fugax, motor weakness, sensory deficit, vertigo/spinning sensation, gait abnormalities, or tremors. ENT: No hearing loss, otalgia, otorrhea, rhinitis, rhinorrhea, hoarseness, or sore throat. CARDIOVASCULAR: Denies any exertional angina, dyspnea on exertion, orthopnea, paroxysmal nocturnal dyspnea, palpitations, life-threatening arrhythmias, claudication. PULMONARY: Denies any shortness of breath, cough, phlegm/sputum, hemoptysis, pleuritic chest pain. SLEEP: Denies morning headaches, daytime somnolence or napping. Denies difficulty falling asleep, staying asleep, waking from sleep. Denies knowledge of snoring. GASTROINTESTINAL: Positive for abdominal pain s/p lap appendectomy. Denied any nausea, vomiting, constipation, diarrhea GENITOURINARY: Denies frequency, urgency, nocturia, hematuria or incontinence (Storage/Irritative symptoms.) Low urinary stream, straining to void, urinary intermittency or hesitancy, splitting of the voiding stream, terminal dribbling. ENDOCRINOLOGIC: Denies polyuria, polydipsia, polyphagia or heat/cold intolerances. HEMATOLOGIC: Denies thrombophilia/previous clots, or coagulopathy/bleeding disorders. ONCOLOGIC: Denies personal history of malignancy. DERMATOLOGIC: Denies rashes or pruritus. PSYCHIATRIC: Denies any suicidal or homicidal ideation. Denies hallucinations. PHYSICAL EXAM GENERAL APPEARANCE: The patient is awake, alert, and oriented, in no acute cardiopulmonary distress. NEUROLOGICAL: Cranial nerves II-XII grossly intact. Motor is 5/5 in bilateral upper and lower extremities proximal to distal. No sensory deficits. HEENT: Face is symmetric. Pupils are equal and reactive. Extraocular movements are intact. NECK: Supple. No JVD. No thyromegaly. No submental, submandibular, pre- /postauricular, occipital or supraclavicular lymphadenopathy. CHEST: Normal chest expansion. No Telemetry. LUNGS: Absence of any rales, rhonchi or any wheezing. CARDIOVASCULAR: Regular. S1 and S2 normal. No appreciable rubs, murmurs or g allops. ABDOMEN: Soft, nontender, and nondistended. There is no rebound, voluntary gua rding, or rigidity. : Deferred. No Dennis. EXTREMITIES: Non-edematous and not cyanotic. No clubbing. Good capillary refill. SKIN: No skin breakdown. Assessment/Plan: ASSESSMENT: Suspected acute appendicitis POA S/p lap appendectomy 02/12/2025 with History of gastritis Home Medications: Reported Medications Famotidine (Famotidine) 40 Mg Tablet, 40 MG PO HS, TAB 02/09/25 Plecanatide (Trulance) 3 Mg Tablet, 3 MG PO DAILY, TAB 02/08/25 Omeprazole (Omeprazole) 20 Mg Capsule.dr, 1 CAP PO DAILY 02/08/25 Ondansetron HCl (Ondansetron HCl) 4 Mg Tablet, 1 TAB PO Q8H 02/08/25 Discontinued Reported Medications Famotidine (Famotidine) 40 Mg Tablet, 1 TAB PO DAILY for 30 Days, #30 TAB 0 Refills 02/08/25 Time spent arranging discharge: 31-60 minutes ATTESTATION BY PHYSICIAN I have seen and examined the patient. I reviewed the documentation, medical decision making, and treatment plan as noted by the mid-level provider above. I agree with the findings and plan of care. LOREN Perdomo MD [facility] Feb 09, 2025 12:13
--- NOTE | 2025-02-09 13:47 | PN ---
Progress Note: SUBJECTIVE: The patient is postop day 1 from lap appy. Overnight has had no acute events. No nausea, no vomiting. tolerating diet, passing gas, no bowel movement. OBJECTIVE: VITAL SIGNS: Vital signs reviewed and stable. CARDIOVASCULAR: Regular rhythm LUNGS: Clear to auscultation. ABDOMEN: Soft, mildly distended, expectedly tender. Incisions are dry, clean, intact, and still covered. EXTREMITIES: No edema LABORATORY DATA: Lab work has been reviewed. ASSESSMENT AND PLAN: ok to discharge home stool softners as needed for soft BM at home FU in 2w in office. no lifting for 4w. KIKI DELEON MD Feb 09, 2025 13:46
--- NOTE | 2025-02-09 14:18 | NUR ---
PATIENT DISCHARGED. IV REMOVED INTACT. EDUCATION GIVEN ON WOUND CARE AND NO HEAVY LIFTING. EXPLAINED FOLLOW UP APPOINTMENTS. ALL BELONGINGS GATHERED AND TAKEN DOWN BY BOYFRIEND. ALL QUESTIONS AND CONCERNS ANSWERED. TRANSPORTED DOWN TO PERSONAL VEHICLE ALERT AND ORIENTED X 4 VIA WHEELCHAIR.
== END 2025-02-09 14:30 | disposition home or self-care (01) ==
LOC: EDH 14:11 → EDHIP 16:13 → INTOOBSV 16:13 → 4BH 02-08 04:08
PROVIDERS: ADMIT Internal Medicine; ATTEND Internal Medicine
DX: K35.80 Unspecified acute appendicitis (principal); K21.9 Gastro-esophageal reflux disease without esophagitis; K29.70 Gastritis, unspecified, without bleeding; Z79.899 Other long term (current) drug therapy
CPT/HCPCS: 96365; 96366 ×4; 96375 ×2; 99284; 84484; 80048 ×2; 83690; 85025 ×2; 85610; 85730; 81003; 81025; 36415 ×3; 74178; 93005; 44970; 96376 ×2; 88304; 83735; 80053; 85027; J1885 ×6; J2543 ×6; Q9967; G0378 ×22; A4663; J7030; J7120; J1171 ×2; J2270; J2405 ×2; J3480; J0665; C1769 ×3; A4649 ×4; A4930; A4223; A4213; A4222; A4216; A4600; 96374; 99285

== ENCOUNTER → 2025-02-07 | Outpatient (CLI) | payer BC ==
[~2025-02-07] MED LIST: FAMO40TA7 PO; IOHEXOL-350 75 ML VIAL IV ONE; OMEP20CA12 PO; ONDA-104 PO; PLEC3TAB2 PO
--- NOTE | 2025-02-07 12:48 | HMCIMG ---
EXAM: CT Abdomen and Pelvis with Intravenous Contrast CLINICAL HISTORY: 24-year-old female with lower abdominal pain TECHNIQUE: Axial computed tomography images of the abdomen and pelvis with intravenous contrast. Dose reduction technique was used including one or more of the following: automated exposure control, adjustment of mA and kV according to patient size, and/or iterative reconstruction. CONTRAST: 75 mL of IV contrast COMPARISON: CT Abdomen and Pelvis 07/04/2011 FINDINGS: LUNG BASES: No basilar airspace consolidation or pleural effusion. LIVER: Unremarkable. GALLBLADDER AND BILE DUCTS: Unremarkable. No calcified stone. No ductal dilation. PANCREAS: Unremarkable. SPLEEN: Unremarkable. ADRENAL GLANDS: Unremarkable. KIDNEYS, URETERS, AND BLADDER: Unremarkable. No hydronephrosis or nephrolithiasis. No ureteral or bladder calculi. STOMACH AND BOWEL: Slight thickening of the appendix, possible early appendicitis. No CT evidence of colitis or acute diverticulitis. Negative for perforation or abscess. APPENDIX: Appendicitis is new compared to the prior CT Abdomen and Pelvis 07/04/2011. Slight thickening of the appendix, possible early appendicitis, correlate clinically. PERITONEUM: No free fluid. No free air. LYMPH NODES: No lymphadenopathy. REPRODUCTIVE: The uterus and adnexa are unremarkable. VASCULATURE: No aortic aneurysm. ABDOMINAL WALL AND SOFT TISSUES: Unremarkable. BONES: No fracture or suspicious osseous abnormality. IMPRESSION: 1. Slight thickening of the appendix, possible early appendicitis, correlate clinically. No perforation or abscess. New compared to prior CT Abdomen and Pelvis 07/04/2011. /Manteno
== END | disposition home or self-care (01) ==
LOC: RAH 09:25
PROVIDERS: ATTEND Internal Medicine Gastroenterology
DX: R10.30 Lower abdominal pain, unspecified (principal)
CPT/HCPCS: 74178; Q9967